=== PATIENT | male | born 1960 | race Asian ===

== ENCOUNTER 2023-07-11 15:14 | Emergency (ER) | payer MEDICARE ==
[~2023-07-11] VITALS: Ht 180.3 cm; Wt 91.0 kg
[2023-07-11 15:24] VITALS: TEMP 98.5
[2023-07-11] MEDS ORDERED: AMLO-258 PO (15:29)
[2023-07-11] MEDS ORDERED: ASPI-1450 PO (15:30)
[2023-07-11] MEDS ORDERED: LOSA-381 PO (15:32)
[2023-07-11] MEDS: KETOROLAC TROMETHAMINE 30 MG/ML VIAL IM ONE (19:29)
[2023-07-11] MEDS ORDERED: IBUP-1492 PO (20:13)
[2023-07-11] MEDS: AmLODIPine BESYLATE 10 MG TABLET PO ONE (20:38)
[2023-07-11 21:29] VITALS: BP 185/111; PULSE 82; RESP 20
== END 2023-07-11 21:54 | disposition home or self-care (01) ==
LOC: EMS 15:14
DX: M25.551 Pain in right hip (principal); I10 Essential (primary) hypertension; E78.00 Pure hypercholesterolemia, unspecified
CPT/HCPCS: 99284; 73502; 73552; 96372; J1885